=== PATIENT | male | born 1940 | race Caucasian/White ===

== ENCOUNTER 2016-11-25 16:30 | Inpatient (IN) | payer MEDICARE, BC ==
[~2016-11-25] VITALS: Ht 167.6 cm; Wt 84.1 kg
--- NOTE | ~2016-11-25 | WND ---
ADMIT: 11/25/2016 RM/LOC: 411 [facility] MR#: [id number] [address] [address] [place] [address] Wound Care Clinic SEX: M AGE: 76 : 1940 DATE OF VISIT: 11/29/2016 TIME IN: 0925 hours. TIME OUT: 0945 hours. REASON FOR VISIT: Skin check per request of Dr. Velazquez. HISTORY OF PRESENT ILLNESS: This is a 76-year-old, male, who has been seen previously in Wound Care in 2014 and 2016 for evaluation and treatment of multiple skin issues. In his visit in 2015, he was diagnosed with an unstageable pressure ulceration, right heel. Stage II pressure ulceration, left heel and stage III pressure ulceration on his coccyx. Most recently, the patient was seen in the emergency room on 11/25/2016, for altered level of consciousness. He was noted to have chronic numerous medical condition, and he lives in [facility]. He was noted to be hospice while at the nursing facility, but the requested him be taken off hospice in order that he could be evaluated. He was noted to have decreased level of alertness for the past couple of days. He was nonverbal at the ER visit. According to Dr. Francesco Connolly's note, he had been experiencing respiratory symptoms. He continued to deteriorate and was unresponsive for the last 48 hours even to painful stimulus. He had diarrhea and worsening breathing. Therefore, he was taken to the emergency room and admitted for IV antibiotics and fluids. Wound Care was consulted to do a skin exam. 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 Sleep apnea, previously on CPAP. Type 2 diabetes mellitus. Right rotator cuff repair. Left total knee arthroplasty. Debridement of diabetic ulcers. History of atrial fibrillation on regular rhythm. Previously on Eliquis. COPD. Chronic indwelling Rowland catheter with neurogenic bladder. Coronary artery disease. Systemic hypertension. Diabetes type 2 with neuropathy. Gastroesophageal reflux disease. Hyperlipidemia. Obesity. History of sacral ulcers. Distal left femur fracture. History of T4 fracture that has been stable. Paraplegic. History of osteomyelitis. Known osteoporosis. Restless legs syndrome. Allergic rhinitis. Chronic constipation. Vertebral fracture T4-T6. Laminectomy. Bone biopsy in May 2014. Cardiac cath with cardiac stents in 2010. 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 ALLERGIES: Sulfa, Novocain, and penicillin. CURRENT MEDICATIONS: Per the MAR. Please see the MAR for further details. 1. DuoNeb. 2. Levemir. 3. NovoLog. 4. D5 and quarter normal saline with KCl. 5. Rocephin. 6. Vancocin. ADMIT: 11/25/2016 RM/LOC: 411 [facility] MR#: [id number] [address] [place], [place] [address], [place] [address] Wound Care Clinic SEX: M AGE: 76 : 1940 PRN medications: 1. Glutose. 2. Maalox. 3. Surfak. 4. Tylenol. 5. DuoNeb. 6. Glucagon. 7. Tylenol suppository. 8. Nitrostat. 9. D50. 10.Morphine. FAMILY HISTORY: Significant for diabetes in his brother. Heart disease and aneurysm in his mother. Myocardial infarction in his father. SOCIAL HISTORY: He is . He is currently residing at [facility]. Prior to that he lived in [place] with . 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 Remote history of smoking when he is in the [employer]. Rare alcohol. No illicit drugs. REVIEW OF SYSTEMS: He is examined in his hospital room where he is asleep on a low air loss mattress. He does not awaken to his name. His is at the bedside. She denies any knowledge of any recent fever or chills. No nausea or vomiting. No cough, cold, or chest pain. He states he has not been eating for the last several days. Nursing staff at bedside reports that he had a soft stool this morning. PHYSICAL EXAMINATION: VITAL SIGNS: Tympanic temperature 97.8, pulse 86, respirations 16, blood pressure 104/56, and O2 saturation with oxygen per nasal cannula 95%. Focused exam, body wide skin exam was done. He does have blanchable erythema on the top of his ears under his O2 cannula. To his bilateral heels, he has blanchable erythema and dry scaly skin. To his sacral, coccyx, and buttock area, he has scar tissue from a previous ulceration. He does have an area that measures 9 cm x 9 cm that spreads over the top of both buttocks that is interspersed with ulcerations with a dark red wound base of 0.4 cm and scar tissue. Small amount of serosanguineous drainage noted. No surrounding erythema or induration. ASSESSMENT: 1. Stage III pressure ulcerations to sacral, coccyx, and buttock area. ADMIT: 11/25/2016 RM/LOC: 411 [facility] MR#: [id number] [address] [place] [id number] [place] [address] Wound Care Clinic SEX: M AGE: 76 : 1940 2. Blanchable erythema on top of ears and bilateral heels. TREATMENT PLAN: He is to continue on his low air loss mattress. Position off the sacrum. Reposition every 2 hours from side to side. If up in the chair, limit time to 1 hour only with chair air cushion. Thick hydrocolloid to the sacrum changed twice weekly and p.r.n. If unable to keep the hydrocolloid in place, may use mixture of Sensi-Care and Aloe 4 times a day and p.r.n. with stools. It is okay to layer the Sensi-Care, clean top layer if soiled. Skin protective wipe to the top of ears and heels daily. Heels floated off all surfaces. Thank you for this referral, and Wound will follow while he is inpatient. Fanny Brown APRN/ carmen JOB #: [id number] CC: Edmond Velazquez, Attending Physician Edmond Velazquez, Family Physician
[~2016-11-25 16:30] MED LIST: ASA CHILDREN'S81 MG PO; ASCORBIC ACID500 MG PO; CARDIZEM CD PO; CEFTIN DPS500 MG PO; CLARITIN DPS10 MG PO; CORDARONE DPS200 MG PO; DELTASONE DPS10 MG PO; DUONEB DPS3 ML IH; ELIQUIS5 MG PO; FLEET ENEMA133 ML PR; GLUCAGON1 MG/ML IM; GLUTOSE 1537.5 GM PO; HIPREX DPS1 GM PO; HYDROCODONE 5MG/5 MG PO; KEPPRA DPS500 MG PO; KLOR-CON M2020 ME1 PO; LAMICTAL DPS25 MG PO; LANTUS SIN100 UNITS/ SQ; LASIX DPS80 MG PO; LEVAQUIN DPS500 MG PO; MAALOX DPS30 ML PO; MIRALAX DPS17 GM PO; NITROSTAT0.4 MG SL; NOVOLOG100 UNIT/2 SQ; PROSCAR DPS5 MG PO; SURFAK240 MG PO; SYNTHROID DP0.025 MG PO; THERAPEUTIC M1 EAC1 PO; THERAPEUTIC MUL1 TA1 PO; TYLENOL DPS325 MG PO; ULTRAM DPS50 MG PO; VITAMIN D1000 UNI1 PO; ZEBETA5 MG PO; ZOLOFT DPS25 MG PO; [UNRECOGNIZED DRUG - OTHER] IR
--- NOTE | 2016-11-26 10:26 | HP ---
ADMIT: 11/25/2016 RM/LOC: 411 [facility] MR#: [id number] [address] [address] [facility] [place] [address] History and Physical SEX: M AGE: 76 : 1940 DATE OF SERVICE: CHIEF COMPLAINT: Unresponsive for the last 2 days. HISTORY OF PRESENT ILLNESS: Mr. Melvin is a 76-year-old male, resident of a local fdc. He has been on hospice. He had apparently developed respiratory symptoms about a week ago, and at his 's request, hospice did treat him with some antibiotics, as I do no have any real record of that. At any rate, he deteriorated and has been basically unresponsive for the last 48 hours to even painful stimulus. He was having some diarrhea and worsening trouble breathing. His then took him off hospice and insisted he be brought to the emergency room and be admitted for IV antibiotics and fluids as "that was what he would want." In the emergency room, he was found to have glucose of 387 mg/dL, creatinine of 3.1 mg/dL (baseline 1-1.25), calcium of 7.5. AST of 247 u/L, low total protein and albumin. INR of 1.77. WBC of 20,000, hemoglobin of 14.2 with hematocrit of 47 with slightly microcytic indices. Lactic acid of 2.1 mmol/L, and a hazy urine. He has a chronic indwelling catheter. Chest x-ray was read as "right more than left lung base opacities." Both ER staff and I had long discussions with Mrs. Melvin about Quentin's desperate conical situation. She is quite adamant that she wants him to be a full code and to "get IV antibiotics and fluids and will see how he does." She also reports "he always wanted the Lord to take him when it was time, but he wanted to have a chance at resuscitation too." Again, she is pretty adamant about this. Past history is complex. He had a left temporal intraparenchymal hemorrhage with lateral extension with his last hospitalization in December 2015. He has known sleep apnea and previously been on CPAP. He has type 2 diabetes. He has had prior right rotator cuff repair and left total knee arthroplasty. He has debridement of diabetic ulcers. He has a history of atrial fibrillation (in regular rhythm now) and was previously on Eliquis therapy. He has a known COPD, on chronic indwelling Rowland catheter with neurogenic bladder, coronary artery disease, systemic hypertension, type 2 diabetes with neuropathy, gastroesophageal reflux disease, hyperlipidemia, obesity, history of sacral ulcers and with his last hospitalization sustained a distal left femur fracture in a fall. Apparently, his temporal hemorrhage on admission in 2015 was also secondary to fall under the fdc. He does have a history of T4 "pathologic" fracture that has been stable over several years, but he is paraplegic with that. His other diagnoses include history of osteomyelitis, known osteoporosis, restless legs syndrome, chronic gastroesophageal reflux disease, hyperlipidemia, allergic rhinitis, chronic constipation, vertebral fracture T4-T6, laminectomy and bone biopsy May 2014, cardiac cath with cardiac stents 2010, "mixed" functional incontinence, dementia with psychosis, and depression with psychosis. CURRENT MEDICATIONS: Include; 1. Levothyroxine 50 mcg daily. 2. Amiodarone 200 mg daily. 3. Aspirin 81 mg daily. 4. Lamictal 25 mg daily (dementia). 5. Sertraline 25 mg daily. ADMIT: 11/25/2016 RM/LOC: 411 [facility] MR#: [id number] [address] [address] [place] [address] History and Physical SEX: M AGE: 76 : 1940 6. Furosemide 80 mg b.i.d. 7. Hiprex one tab by mouth twice daily. 8. Morphine sulfate ER 30 mg daily. 9. MiraLAX 17 g b.i.d. 10.Micro-K 20 mEq b.i.d. 11.Atarax 25 mg q.6 hours. 12.Lamictal 50 mg two tabs at bedtime. 13.Keppra 500 mg daily. P.r.n. orders for; 1. Tylenol. 2. Nitrostat. 3. Milk of magnesia. 4. Benadryl. 5. Atropine sulfate drops. 6. Morphine solution (these from the hospice). 7. Stool softeners. 8. Ativan 1 mg q.2 hours p.r.n. 9. Dulcolax suppository p.r.n. 10.He is also getting ipratropium/albuterol TJN q.i.d. 11.Rowland cares every shift. His Rowland catheters usually changed p.r.n. and was last changed 10/06/2016. 12.He is on O2 at 2-4 L as needed for comfort while awake. Still his medications, he also gets Humalog 8 units subcu q. evening and Lantus 26 units subcu q. evening, and another Humalog 6 units b.i.d. a.c. per fdc protocol, and his glucose available p.r.n. ALLERGIES: INCLUDE SULFA, NOVOCAIN, AND APPARENTLY PENICILLIN. FAMILY HISTORY: From old records revealed his mother and father of coronary artery disease. SOCIAL HISTORY: He has been a fdc patient for many years. REVIEW OF SYSTEMS: Essentially unobtainable. His "really does not know what has been happening last week except he has had some diarrhea and sometimes he looks like he wants to vomit." PHYSICAL EXAMINATION: GENERAL: He is lying on the ER gurney. HEENT: His mouth is wide open. The oral mucosa is dry. He has diminished skin turgor. VITAL SIGNS: Right now, he is apparently afebrile. Blood pressures are in the 100-110 systolic range, pulse of 80 to 90 and seemingly regular. LUNGS: Clear anteriorly. CARDIAC: Shows a regular rhythm now. ABDOMEN: Soft. No apparent masses, tenderness, organomegaly. Rowland catheter is draining somewhat hazy urine. EXTREMITIES: Lower extremities show no edema. He has diminished pulses in his feet. ADMIT: 11/25/2016 RM/LOC: 411 [facility] MR#: [id number] [address] [address] [place] [address] History and Physical SEX: M AGE: 76 : 1940 NEUROLOGIC: Again, he is unresponsive to painful stimulus. IMPRESSION: 1. Coma with sepsis. 2. Probable pneumonia. 3. Probable urinary tract infection. 4. History of decubitus ulcers. 5. Paraplegia with history of T4-T6 vertebral fracture. 6. Chronic obstructive pulmonary disease. 7. Chronic kidney disease. 8. Coronary artery disease. 9. Systemic hypertension. 10.Type 2 insulin-dependent diabetes. 11.Obstructive sleep apnea. 12.Osteoporosis. 13.Restless legs syndrome. 14.Gastroesophageal reflux disease. 15.Hyperlipidemia. 16.Chronic urinary retention. 17.Chronic constipation. 18.Dementia with psychosis. 19.Hypothyroidism. 20.Depression/anxiety disorder. PLAN: After prolonged discussions with the ER staff and his , he is going to be admitted to telemetry (because of positive sepsis markers) with routine telemetry orders. We will start triple antibiotic therapy. Continue his DuoNebs and oxygen. We will give fluid resuscitation. I have discussed with that we will make more decisions concerning the need for nasogastric feeding tube and further efforts tomorrow assuming he survives the night - which I think is "shaky" at best and I have discuss that with his . Again, she wants him to be a full code. Further treatment will depend on his response to our initial therapies. Francesco Connolly MD/ carmen JOB #: [id number] CC: Edmond Velazquez, Attending Physician Edmond Velazquez, Family Physician
--- NOTE | 2016-11-27 00:16 | ER ---
ADMIT: 11/25/2016 RM/LOC: 411 [facility] MR#: [id number] [address] [address] [place] [address] Emergency Room Report SEX: M AGE: 76 : 1940 DATE: 11/25/2016 CHIEF COMPLAINT: Altered level of consciousness. HISTORY OF PRESENT ILLNESS: The patient is a 76-year-old gentleman with numerous chronic medical conditions, who lives in a care home and has been on hospice for quite some time now. The patient is brought in today as the wants him taken off hospice to be brought in to be evaluated. He has had decreased level of alertness for the past couple of days. The patient is not able to provide me any review of systems as he is nonverbal at this time and is essentially lethargic. Very limited history at this time. PAST MEDICAL HISTORY: Significant for heart disease, COPD, atrial fibrillation, chronic renal failure, and paraplegic. MEDICATIONS: See nursing note. ALLERGIES: NOVOCAIN, SHELLFISH, AND PENICILLIN. SOCIAL HISTORY: Lives at [facility]. Quit smoking in the 60s. Denies any drug or alcohol use. PHYSICAL EXAMINATION: VITAL SIGNS: Blood pressure is 129/66, pulse 93, respirations 12, temperature 99.7, sats 92% on 3 L. HEENT: Head is atraumatic. Airway is patent. Mucous membranes are dry. The patient is protecting his own airway. Pupils are equal, round, and reactive to light. HEART: Regular rate and rhythm. LUNGS: Coarse breath sounds in the bilateral bases right more than left. ABDOMEN: Soft. Difficult to assess tenderness. SKIN: Warm and dry. He has a strong urine smell, and the patient has a Rowland catheter in place. He has bilateral lower extremities that have severe muscle wasting from his long-standing paraplegia. LABORATORY DATA: White count is 20.3, hemoglobin 14.2, and platelets 213. Sodium 142, potassium 4.1, chloride 102, carbon dioxide 24, BUN 76, glucose 387, creatinine 3.1, AST 247, ALT 234, magnesium 2.9. Cardiac enzymes are pending. INR is 1.77. Lactic acid is 2.1. EKG shows sinus rhythm, rate of 96. There is some T-wave inversion in V2, 3, 4 and 5, which appears different than previous EKG. Chest x-ray shows what could be bilateral infiltrate in ADMIT: 11/25/2016 RM/LOC: 411 [facility] MR#: [id number] [address] [address] [place] [address] Emergency Room Report SEX: M AGE: 76 : 1940 the bases right more the left. EMERGENCY DEPARTMENT COURSE: The patient arrives. He is unresponsive, but protecting his airway. I had a long discussion with the patient's about her expectations and the fact he has been on hospice and what she wants at this time. She states she wants everything done. She wants him to be intubated if necessary, chest compressions, and cardioversion if needed. She wants him to be given fluids and IV antibiotics if needed also. We will go ahead and do the sepsis routine at this time. I spoke to Dr. Connolly, who is covering for the patient's primary care physician, Dr. Velazquez, and the patient will be admitted with a diagnosis of decreased level of alertness, UTI, renal failure, early sepsis. Avel Vicente MD/ carmen JOB #: [id number] CC: Edmond Velazquez MD, Attending Physician Edmond Velazquez MD, Family Physician
--- NOTE | 2016-11-29 13:11 | CO ---
ADMIT: 11/25/2016 RM/LOC: 411 [facility] MR#: [id number] [address] [address] [place] [address] Consultation SEX: M AGE: 76 : 1940 DATE OF CONSULTATION: 11/28/2016 ATTENDING PHYSICIAN: Edmond Velazquez CONSULTING PHYSICIAN: Iqra Rouse APRN TIME IN: 0950 hours. TIMEOUT: 1005 hours. REASON FOR CONSULTATION: Supportive Care consultation was requested by Dr. Velazquez for discussion of goals for care. HISTORY OF PRESENT ILLNESS: Mr. Melvin is a 76-year-old male with a history of a left intraparenchymal hemorrhage in December of 2015, diabetes mellitus type 2 with a history of diabetic ulcers, paraplegia, COPD, chronic kidney disease, coronary artery disease, as well as dementia. He was living at [facility] and was actually on hospice care prior to this admission. Apparently, he developed respiratory symptoms about a week ago and was started on oral antibiotics. His shortness of breath continued to worsen and he also developed diarrhea. The patient's decided to revoke hospice and bring him to the emergency room for fluids and antibiotic therapy. In the emergency room, she indicated that she wished for the patient to be a full code status. Both the emergency room staff and primary care provider had extensive discussions with the patient's regarding code status and goals, however, the patient's is very adamant that she wishes for the patient to be a full code and to receive aggressive care at this time. He was admitted for treatment of sepsis. Blood cultures are growing Staph. Stool is pending in terms of culture. He is very debilitated and lethargic. Due to his complexities, Supportive Care consultation was requested to discuss goals for care. In terms of advanced directives, we do not have any on file with the exception of what appears to be a document from 2015 from his assisted that stated that he wanted to be a full code and wanted to be rehospitalized. In terms of medical decision making, the patient's , Zo Melvin whose phone # and [phone] is the patient's next of kin medical decision maker. Symptomatically, the patient is lethargic. He does not talk or open his eyes for me. He appears overall comfortable. PAST MEDICAL HISTORY: Left temporal intraparenchymal hemorrhage with lateral extension, sleep apnea, diabetes mellitus type 2 with history of ulcers, right rotator cuff repair, left total knee arthroplasty, atrial fibrillation, COPD, chronic Rowland for neurogenic bladder, coronary artery disease, systemic hypertension, type 2 diabetes mellitus with neuropathy, GERD, hyperlipidemia, obesity, sacral ulcers, history of a left distal fracture of the femur, paraplegia from a T4 pathologic fracture, osteomyelitis history, restless legs syndrome, hyperlipidemia, allergic rhinitis, chronic constipation, laminectomy ADMIT: 11/25/2016 RM/LOC: 411 [facility] MR#: [id number] [address] [place] [address] [place] [address] Consultation SEX: M AGE: 76 : 1940 and bone biopsy in May of 2014, cardiac cath with cardiac stents, mixed incontinence, dementia, and depression. ALLERGIES: THE PATIENT IS ALLERGIC TO PENICILLIN WELL PROCAINE AND SHELLFISH. CURRENT MEDICATIONS: Please see the patient's MAR for specific routes and dosages. His current medications are as follows: 1. Vancomycin. 2. D5 1/4 normal saline with potassium chloride. 3. Levemir. 4. Rocephin. 5. NovoLog. 6. Morphine. 7. Normal saline. 8. Tylenol. 9. Maalox. 10.Nitrostat. 11.Glutose. 12.Glucagon. 13.DuoNeb. SOCIAL HISTORY: The patient lives at [facility]. I do not know if he has a smoking or tobacco history. FAMILY HISTORY: His mother and father of coronary artery disease. FUNCTIONAL REVIEW: Prior to his hospital stay, he was living at [facility]. He was total care. Intake was normal to reduced. Palliative performance scale prior to admission was around 30%. Currently, he is mouth care only. He is lethargic. His current palliative performance scale is a 10%. REVIEW OF SYSTEMS: A 10-point review of systems was attempted, however, due to the patient's mentation this is unable to be obtained. PHYSICAL EXAMINATION: GENERAL: The patient is examined in the bed. He is in no acute distress. VITAL SIGNS: Temperature 98.3, pulse 82, respirations 12, blood pressure 96/49, and oxygen 91% on 4 L per nasal cannula. HEENT: Head is normocephalic. Pupils are not examined. Oral mucosa pink and very dry. NECK: Supple. RESPIRATORY: Respirations are equal and nonlabored at rest. LUNGS: Diminished throughout. CARDIOVASCULAR: Rate and rhythm regular without murmurs, rubs, or gallops. 1+ bilateral lower extremity edema noted. GASTROINTESTINAL: Soft, nontender. Bowel sounds are hypoactive. GENITOURINARY: Rowland draining clear yellow urine. ADMIT: 11/25/2016 RM/LOC: 411 [facility] MR#: [id number] [address] [place] [id number] [place] [address] Consultation SEX: M AGE: 76 : 1940 MUSCULOSKELETAL: Generalized weakness. He does not move his extremities. INTEGUMENTARY: Skin is fragile. NEUROLOGIC: He will not open his eyes to verbal stimuli. He does not follow commands. PSYCHIATRIC: Calm and cooperative. DIAGNOSTIC DATA: Sodium 156, potassium 4.5, BUN 86, creatinine 2, total protein 6.3, albumin 2.4, alkaline phosphatase 145, AST 247, and ALT 234. LDH 386. WBC 6.9, hemoglobin 13.4, hematocrit 45.2, and platelets 144. IMPRESSION: 1. Debility. 2. Dementia. 3. Lethargy. 4. Fatigue. 5. Malaise. 6. Moderate protein-calorie malnutrition. 7. Sepsis. 8. Chronic obstructive pulmonary disease. 9. Paraplegia. 10.Diabetes mellitus type 2. 11.Neurogenic bladder with Rowland. 12.Chronic kidney disease. 13.History of a left intraparenchymal hemorrhage. 14.Palliative care. 15.Patient is a full code. The patient is unable to participate in medical decision making at this time. I was able to call the twice in attempt to reach her, however, she did not answer. Her voicemail was full, however, I did get part of a voicemail delivered before it cut me off. I have discussed this with nursing. The patient's is planning on returning after lunch today, therefore, I will try to catch when she is here later this afternoon so that we can discuss goals and the patient's status. We would like to thank Dr. Velazquez for the invitation to participate in this patient's care. Total consultation time was 15 minutes from 0950 hours 1005 hours with 5 minutes from 0953 hours to 0958 hours spent [id number] with the patient at the bedside. Hopefully, I will be able to sit down with later this afternoon and discuss goals further. Iqra Rouse APRN/ carmen JOB #: [id number] CC: Edmond Velazquez, Attending Physician Edmond Velazquez, Family Physician
--- NOTE | 2016-12-06 08:28 | CO ---
ADMIT: 11/25/2016 RM/LOC: 411 [facility] MR#: [id number] [address] [address] [place] [address] Consultation SEX: M AGE: 76 : 1940 DATE OF CONSULTATION: 11/29/2016 ATTENDING PHYSICIAN: Edmond Velazquez CONSULTING PHYSICIAN: Hugo Pruitt MD This patient is a 76-year-old male, whom I have been asked to see for possible PEG tube placement at the request of the family. A complicated 76-year-old male, who unfortunately had a left intraparenchymal hemorrhage back in December of 2015. He has paraplegia, I believe from a T4 lesion of some type. Had recently been on hospice care, where he started developing increasing respiratory symptoms and at the request of family, he was brought in to the emergency room. They have then changed his code status to full code and now are questioning request of a feeding tube. I had a long visit with him today about a feeding tube, what it entails, the risks, benefits, possible complications, and alternatives of a feeding tube as well. Does not look like he has had any significant abdominal surgeries that I can tell with incisions. He is, currently, I think still kind of trying to ponder the overall question after my discussion with him of the long-term implications of placing a feeding tube at this point in him. At this point, he is still thinking about it and I will revisit with him and see what his feelings are. I would encourage any type of supportive care for him from our facility to help him with this tough decision. You can see full dictated consult note by Thomas Rosa. Hugo Pruitt MD/ carmen JOB #: [id number] CC: Edmond Velazquez, Attending Physician Edmond Velazquez, Family Physician
--- NOTE | 2017-01-30 08:59 | DS ---
ADMIT: 11/25/2016 RM/LOC: 411 [facility] MR#: [id number] [address] [address] [place] [address] General Discharge Summary SEX: M AGE: 76 : 1940 ADMISSION DATE: 11/25/2016 DISCHARGE DATE: 12/02/2016 INDICATION FOR HOSPITALIZATION: Quentin is a 76-year-old, white male, prison resident, who had been on hospice, developed upper respiratory symptoms, and his discontinued hospice and transferred him to the hospital and requested full evaluation and treatment. He was ultimately evaluated in the ER and seen by Dr. Connolly, who admitted him with a diagnosis of sepsis with probable pneumonia and UTI along with numerous other medical problems. Please see his admission H and P for further details regarding his history of present illness, past medical history, physical exam, and assessment at the time of hospitalization. HOSPITAL COURSE: On admission, Quentin was evaluated and treated by Dr. Francesco Connolly. He was admitted with a diagnosis of septicemia and started Merrem, vancomycin, and Levaquin along with DuoNeb. Palliative care consult was requested along with wound care consult. Code status was addressed. Accu- Chek monitoring and sliding scale insulin were ordered. Vancomycin was held on November 26. Routine lab and x-ray evaluation was undertaken. Merrem was discontinued along with Levaquin and Rocephin was added on the . Palliative Care was consulted to meet with family regarding code status on the . On November 29; sodium was 141. He was n.p.o. per Speech Therapy recommendations. Medications were adjusted. Issues regarding him not being a candidate for G-tube were discussed at length with the patient's spouse. The patient's spouse requested a G-tube and ultimately surgery care was consulted along with wound care, and the patient was not felt to be a good candidate for long-term G-tube management. On December 01, vital signs were stable. Blood cultures showed staph. Stool studies were negative. Chest x-ray showed atelectasis or pneumonia. The patient was made a DNR/DNI. Telemetry was discontinued. Hospice was consulted. Pulmonary and Nephrology consults were discontinued. Levemir dose was decreased Accu-Cheks and Rocephin were discontinued, and comfort care measures were initiated. On December 02, vanco and Merrem were discontinued, and Rocephin was the only antibiotic. I continued arrangements for transfer to [facility] with hospice care. MEDICATIONS ON DISCHARGE: Include: 1. DuoNeb q.i.d. 2. Levemir 20 units at bedtime. 3. IV of D5 quarter normal with 20 mEq KCl at 75 mL an hour. 4. Rocephin 2 g IV daily. PRNs: 1. Glutose. 2. Maalox. 3. Surfak. 4. Tylenol. 5. DuoNeb. 6. Glucagon. 7. Nitrostat. ADMIT: 11/25/2016 RM/LOC: 411 [facility] MR#: [id number] [address] [place] [id number] [place] [address] General Discharge Summary SEX: M AGE: 76 : 1940 8. Morphine. Additionally, Ativan 0.5 to 1 mg p.o. or IV q.2 hours p.r.n. anxiety and Zofran 4 to 8 mg p.o. or IV q.4 hours p.r.n. nausea and vomiting ordered along with DNR/DNI status. LABORATORY AND X-RAY DATA: Includes on November 30; white count of 9.4, hemoglobin 12.7, and platelet count of 143,000 along with a November 25 white count of 20.3, hemoglobin 14.2, and platelet count of 213,000. INR on November 25 1.77. On November 30; sodium 158, potassium 3.6, BUN of 46, creatinine 1.3 with glucose 87 with November 26; sodium 143, potassium 4.4, BUN of 92, creatinine 3.4 with glucose of 439,000. Lactic acid was 2.1 on November 25. On November 25; BUN is 76, creatinine 3.1, glucose 387 with a total protein 6.3, albumin 2.4, AST of 247, ALT of 237, magnesium 2.9 with a troponin of 4.87 with a CPK of 54 and MB of 2.8. Blood sugars were monitored during the hospitalization. CRP on admission was 21.3. Vanco peak and troughs were noted. Blood cultures from November 25 were negative. Staph species was coag-negative staph on November 26 blood culture. Staph epidermidis and Staph auricularis on November 27 culture. On November 30, culture was negative. Chest x-ray on November 25 shows atelectasis or pneumonia, unchanged on . Atypical infection noted on November 28. Atelectasis or consolidation on November 30. EKG shows first degree AV block with left axis. FINAL DISCHARGE DIAGNOSES: Include: 1. Pneumonia with sepsis. 2. Atrial fibrillation. 3. Chronic obstructive pulmonary disease. 4. Hypernatremia. 5. Hyperkalemia. 6. Acute exacerbation of chronic kidney disease. 7. Paraplegia. 8. Neurogenic bladder. 9. Chronic indwelling [place]. ADMIT: 11/25/2016 RM/LOC: 411 [facility] MR#: [id number] [address] [place] [id number] [place] [address] General Discharge Summary SEX: M AGE: 76 : 1940 10.Urinary tract infection. 11.Diabetes mellitus type 2. 12.Hypertension. 13.Hyperlipidemia. 14.Coronary artery disease. 15.Decubital ulcer. Ultimately noted to have marked increased risk for aspiration on Speech Therapy assessment. With formal hospice consultation, discontinuation of IV medications with the exception of Rocephin and some IV fluids, we will transfer back to the prison for hospice end of life cares. Please see the hospital record for the details. Edmond Velazquez MD/ carmen JOB #: [id number] CC: Edmond Velazquez MD, Attending Physician Edmond Velazquez MD, Family Physician
== END 2016-12-02 13:40 | disposition short-term general hospital (02) | DRG 698 ==
LOC: ER 16:30 → 4PCU 18:00
PROVIDERS: ADMIT Family Medicine
DX: T83.518A Infection and inflammatory reaction due to other urinary catheter, initial encounter (principal); A41.9 Sepsis, unspecified organism; R40.20 Unspecified coma; R65.20 Severe sepsis without septic shock; N17.9 Acute kidney failure, unspecified; J18.9 Pneumonia, unspecified organism; L89.153 Pressure ulcer of sacral region, stage 3; G82.20 Paraplegia, unspecified; F32.3 Major depressive disorder, single episode, severe with psychotic features; N39.0 Urinary tract infection, site not specified; E44.0 Moderate protein-calorie malnutrition; E87.0 Hyperosmolality and hypernatremia; I48.91 Unspecified atrial fibrillation; F03.90 Unspecified dementia, unspecified severity, without behavioral disturbance, psychotic disturbance, mood disturbance, and anxiety; I25.10 Atherosclerotic heart disease of native coronary artery without angina pectoris; J44.9 Chronic obstructive pulmonary disease, unspecified; N18.9 Chronic kidney disease, unspecified; G47.33 Obstructive sleep apnea (adult) (pediatric); N31.9 Neuromuscular dysfunction of bladder, unspecified; I12.9 Hypertensive chronic kidney disease with stage 1 through stage 4 chronic kidney disease, or unspecified chronic kidney disease; E78.5 Hyperlipidemia, unspecified; E11.40 Type 2 diabetes mellitus with diabetic neuropathy, unspecified; K21.9 Gastro-esophageal reflux disease without esophagitis; E66.9 Obesity, unspecified; M81.0 Age-related osteoporosis without current pathological fracture; E03.9 Hypothyroidism, unspecified; F41.9 Anxiety disorder, unspecified; K59.09 Other constipation; G25.81 Restless legs syndrome; R33.9 Retention of urine, unspecified; J30.9 Allergic rhinitis, unspecified; R39.81 Functional urinary incontinence; Z79.82 Long term (current) use of aspirin; Z82.49 Family history of ischemic heart disease and other diseases of the circulatory system; Z95.5 Presence of coronary angioplasty implant and graft; Z96.652 Presence of left artificial knee joint; Z87.891 Personal history of nicotine dependence; Z66 Do not resuscitate